=== PATIENT | female | born 1950 | race Caucasian/White ===

== ENCOUNTER 2022-08-13 12:49 | Emergency (ER) | payer MEDICARE, SELFPAY ==
--- NOTE | ~2022-08-13 | XR_ITS ---
EXAMINATION: XR CHEST CLINICAL INFORMATION: Cough and shortness of breath COMPARISON: None available. TECHNIQUE: Frontal view of the chest was obtained. FINDINGS: The lungs are well expanded. Patchy airspace opacities are seen in both lungs. No pleural effusion or pneumothorax. The cardiomediastinal silhouette is normal in size. XR/XR chest 1V IMPRESSION: Patchy bilateral airspace opacities are nonspecific. This could be infectious or inflammatory.
[2022-08-13 12:59] VITALS: BP 105/63; PULSE 98; RESP 19; TEMP 37.9; O2SAT 94; BMI 30.5
--- NOTE | 2022-08-13 12:59 | ED.URI ---
HPI - URI/Sore Throat General Chief Complaint: Upper Respiratory Symptoms <RADHA Grace Last Filed: 08/13/22 13:04> Stated Complaint: Body aches, Fever, Asthma <RADHA Grace Last Filed: 08/13/22 13:04> Time Seen by Provider: 08/13/22 13:43 <RADHA Grace Last Filed: 08/13/22 13:04> Source: patient <RADHA Tyson Last Filed: 08/13/22 15:48> Mode of arrival: ambulatory <RADHA Tyson Last Filed: 08/13/22 15:48> Limitations: no limitations <RADHA Tyson Last Filed: 08/13/22 15:48> History of Present Illness HPI Narrative: 72-year-old female with a history of asthma presents to the ER for evaluation of feeling unwell for the last 4 days. She reports intermittent fevers, body aches, headache, cough, nasal congestion and shortness of breath. She is bringing up white phlegm when she coughs. She has been using her albuterol inhaler with some improvement. She has been taking Tylenol for fevers. She denies any chest pain or difficulty breathing. [place] did [place] No known sick contacts. <RADHA Tyson Last Filed: 08/13/22 15:48> MD elicited complaint: fever, cough and nasal congestion <RADHA Tyson Last Filed: 08/13/22 15:48> Pertinent past history: asthma <RADHA Tyson Last Filed: 08/13/22 15:48> Onset (ago): day(s) (4) <RADHA Tyson Last Filed: 08/13/22 15:48> Consistency: progressively worsening <RADHA Tyson Last Filed: 08/13/22 15:48> Severity: moderate <RADHA Tyson Last Filed: 08/13/22 15:48> Description of mucous: clear and other (white) <RADHA Tyson Last Filed: 03/16/23 15:48> Able to tolerate fluids by mouth: No <RADHA Tyson Last Filed: 08/13/22 15:48> Relieving factors: nothing <RADHA Tyson Last Filed: 08/13/22 15:48> Context: recent travel <RADHA Tyson Last Filed: 08/13/22 15:48> Associated symptoms: fever, chills and nasal congestion <RADHA Tyson Last Filed: 08/13/22 15:48> Treatments prior to arrival: acetaminophen <RADHA Tyson Last Filed: 08/13/22 15:48> Related Data Home Medications: Previous Rx's Medication Instructions Recorded azithromycin 250 mg tablet See Rx Instructions PO .COMPLEX #6 08/13/22 (Zithromax Z-Nicholas) tabs benzonatate 100 mg capsule 100 mg PO TID PRN cough #30 caps 08/13/22 cefpodoxime 200 mg tablet 200 mg PO Q12H #10 tabs 08/13/22 prednisone 20 mg tablet 40 mg PO DAILY #10 tabs 08/13/22 <RADHA Grace Last Filed: 08/13/22 13:04> Allergies/Adverse Reactions: Allergies Allergy/AdvReac Type Severity Reaction Status Date / Time Penicillins [PCN] Allergy Hives Verified 08/13/22 13:03 <RADHA Grace Last Filed: 08/13/22 13:04> Review of Systems Review of Systems: Yes all other systems are reviewed and are negative <RADHA Tyson Last Filed: 08/13/22 15:48> [facility] Social History Social History: Social History Advance Directives: Yes Advance Directives Information Provided: No Advance Directives on File: No <RADHA Grace Last Filed: 08/13/22 13:04> Physical Exam Vital Signs: Vital Signs: Last Vital Signs Temp 98.8 F 08/13/22 14:59 Pulse 76 08/13/22 15:31 Resp 18 08/13/22 13:29 BP 105/63 08/13/22 12:59 Pulse Ox 96 08/13/22 15:31 O2 Del Method 08/13/22 15:31 BMI result Body Mass Index 30.5 <RADHA Grace - Last Filed: 08/13/22 13:04> Vital Signs: Last Vital Signs Temp 98.8 F 08/13/22 14:59 Pulse 76 08/13/22 15:31 Resp 18 08/13/22 13:29 BP 105/63 08/13/22 12:59 Pulse Ox 96 08/13/22 15:31 O2 Del Method 08/13/22 15:31 BMI result Body Mass Index 30.5 <RADHA Tyson - Last Filed: 08/13/22 15:48> Appearance: Alert. Oriented X3. No acute distress. Eyes: Pupils equal, round and reactive to light. ENT: Pharynx normal. Neck: Normal inspection. Neck supple. CVS: Normal heart rate and rhythm. Pulses normal. Respiratory: No respiratory distress. Breath sounds coarse at the RAJESH and right base. Speaking in complete sentences Abdomen: Soft and nontender. +BS x4 Skin: Skin warm and dry. Normal skin color. Normal skin turgor. No rashes. Extremities: No lower extremity edema. No calf swelling or tenderness. Neuro: Oriented X 3. No motor deficit. No sensory deficit. <RADHA Tyson - Last Filed: 08/13/22 15:48> Course Course Course Narrative: RME--72yo F w/PMHx Asthma presenting to the ED c/o fever Tmax 101.9 (took Tylenol at 12 noon), body aches, cough, [place], SOB & chest discomfort when coughing x4 days. Recently traveled on cruise to [facility] returned on 08/02/22. 100.2 temp in triage, Lungs CTA SARS/FLU/RSV, CXR, albuterol neb & Motrin ordered <RADHA Grace - Last Filed: 08/13/22 13:04> Medications Administered Discontinued Medications Generic Name Dose Route Start Last Admin Trade Name Freq PRN Reason Stop Dose Admin Albuterol Sulfate 2.5 mg 08/13/22 13:03 08/13/22 13:29 Albuterol Sulfate (0.083%) 2.5 Mg/3 Ml Vial.Neb INHALE 08/13/22 13:04 2.5 mg ONCE ONE Administration Ibuprofen 400 mg 08/13/22 13:03 08/13/22 13:47 Ibuprofen 400 Mg Tablet PO 08/13/22 13:04 400 mg ONCE ONE Administration <RADHA Grace - Last Filed: 08/13/22 13:04> Medications Administered Discontinued Medications Generic Name Dose Route Start Last Admin Trade Name Isaiah PRN Reason Stop Dose Admin Albuterol Sulfate 2.5 mg 08/13/22 13:03 08/13/22 13:29 Albuterol Sulfate (0.083%) 2.5 Mg/3 Ml Vial.Neb INHALE 08/13/22 13:04 2.5 mg ONCE ONE Administration Ibuprofen 400 mg 08/13/22 13:03 08/13/22 13:47 Ibuprofen 400 Mg Tablet PO 08/13/22 13:04 400 mg ONCE ONE Administration <RADHA Tyson - Last Filed: 08/13/22 15:48> Medical Decision Making Medical Decision Making [facility] Narrative: 72 yo female with history of asthma presenting with fever, cough, headache, body aches. Vital signs stable on arrival. She was brought to treatment room and given a albuterol breathing treatment. She reports improvement in her symptoms. She is nontoxic appearing. Chest x-ray showed some bilateral patchy opacities. Given her fevers, sputum production, will plan to treat for pneumonia, cover with azithromycin and Vantin. She is not hypoxic or in any respiratory distress. At this point she is stable for discharge home with oral antibiotics, short course of prednisone and antitussives. She was encouraged to follow up with her primary care doctor. She was given strict return precautions and is stable for discharge home. <RADHA Tyson - Last Filed: 08/13/22 15:48> Differential Diagnosis Differential Diagnoses: The differential diagnosis associated with the presentation includes <RADHA Tyson - Last Filed: 08/13/22 15:48> Acute asthma exacerbation, bronchitis, pneumonia, viral syndrome, COVID, flu, pneumonitis, viral URI <RADHA Tyson Last Filed: 08/13/22 15:48> Lab Data [facility] Lab Attestation statement: I reviewed the patient's lab results. <RADHA Tyson Last Filed: 08/13/22 15:48> Viral studies are negative <RADHA Tyson Last Filed: 08/13/22 15:48> Labs: Lab Results 08/13/22 Range/Units 13:32 Influenza Type A (PCR) NEGATIVE (Negative) Influenza Type B (PCR) NEGATIVE (Negative) RSV RNA Qual (PCR) NEGATIVE (Negative) SARS-CoV-2 RNA (RT-PCR) NEGATIVE (Negative) <RADHA Grace Last Filed: 08/13/22 13:04> Lab Results 08/13/22 Range/Units 13:32 Influenza Type A (PCR) NEGATIVE (Negative) Influenza Type B (PCR) NEGATIVE (Negative) RSV RNA Qual (PCR) NEGATIVE (Negative) SARS-CoV-2 RNA (RT-PCR) NEGATIVE (Negative) <RADHA Tyson Last Filed: 08/13/22 15:48> Independent Interpretation I performed an independent interpretation of an: Plain X-Ray <RADHA Tyson Last Filed: 08/13/22 15:48> Interpretation: CXR reviewed - patchy opacities in both lungs, no focal infiltrate or effusion, agree w/ radiologist read <RADHA yTson Last Filed: 08/13/22 15:48> Radiology Impression Discussion of test interpretation with radiology: I have reviewed the radiologist's reading. <RADHA Tyson Last Filed: 08/13/22 15:48> Radiologist Impression: EXAMINATION: XR CHEST CLINICAL INFORMATION: Cough and shortness of breath COMPARISON: None available. TECHNIQUE: Frontal view of the chest was obtained. FINDINGS: The lungs are well expanded. Patchy airspace opacities are seen in both lungs. No pleural effusion or pneumothorax. The cardiomediastinal silhouette is normal in size. XR/XR chest 1V IMPRESSION: Patchy bilateral airspace opacities are nonspecific. This could be infectious or inflammatory. ? <RADHA Tyson Last Filed: 08/13/22 15:48> Prescription Management I considered prescription management with: Antibiotic <RADHA Tyson Last Filed: 08/13/22 15:48> Chronic Conditions Patient?s care impacted by: Other (Asthma) <RADHA Tyson Last Filed: 08/13/22 15:48> Critical Care Time Critical Care Time Critical Care Time: No <RADHA Tyson Last Filed: 08/13/22 15:48> Discharge Plan Discharge Clinical Impression: Pneumonia <RADHA Grace Last Filed: 08/13/22 13:04> Patient Disposition: Home, Self-Care <RADHA Grace Last Filed: 08/13/22 13:04> Instructions: Pneumonia (ED) <RADHA Grace Last Filed: 08/13/22 13:04> Additional Instructions: You tested negative for influenza, COVID, flu. Your chest x-ray showed patchy bilateral airspace opacities that were nonspecific, could be infectious or inflammatory. Take the prescribed antibiotics for this. Take the prescribed steroids help with any inflammation in your lungs. Use your inhaler every 3-4 hours as needed for shortness of breath and wheezing. Follow-up with your doctor in the next week or so. If you develop new or worsening symptoms call 911 or come back to the ER for further evaluation. <RADHA Grace Last Filed: 08/13/22 13:04> Prescriptions: New azithromycin [Zithromax Z-Nicholas] 250 mg tablet See Rx Instructions .ROUTE .COMPLEX Qty: 6 0RF Rx Instructions: take 500 mg today (day 1), then 250 mg for 4 days (days 2-5) prednisone 20 mg tablet 40 mg PO DAILY Qty: 10 0RF benzonatate 100 mg capsule 100 mg PO TID PRN (Reason: cough) Qty: 30 0RF cefpodoxime 200 mg tablet 200 mg PO Q12H Qty: 10 0RF Rx Instructions: must administer with a meal/food <RADHA Grace Last Filed: 08/13/22 13:04> Interventions: ED Discharge Assessment Last Done: 08/13/22 15:37 <RADHA Grace Last Filed: 08/13/22 13:04> Discharge Date/Time: 08/13/22 15:37 <RADHA Grace Last Filed: 08/13/22 13:04>
[2022-08-13 13:29] VITALS: PULSE 98; RESP 18; O2SAT 94
[2022-08-13] MEDS: Albuterol Sulfate (0.083%) 2.5 MG/3 ML VIAL.NEB INHALE (13:29)
--- NOTE | 2022-08-13 13:36 | PC.NURSE ---
Patient taking breathing treatment LS clear no distress noted covid swab obtained will CTM
[2022-08-13] MEDS: Ibuprofen 400 MG TABLET PO (13:47)
[2022-08-13 14:45] LABS: Influenza A PCR NEGATIVE (Negative); Influenza B PCR NEGATIVE (Negative); Resp Syncy Virus RNA Qual PCR NEGATIVE (Negative); SARS COV2 PCR INHOUSE NEGATIVE (Negative)
[2022-08-13 14:59] VITALS: TEMP 37.1
[2022-08-13 15:31] VITALS: PULSE 76; O2SAT 96
--- NOTE | 2022-08-13 15:36 | PC.NURSE ---
pt contact (jelena) called [phone] no answer x2 left message pt is ready for dc
== END 2022-08-13 15:37 | disposition home or self-care (01) ==
PROVIDERS: Physician Assistant; Emergency Provider Emergency Medicine; PCP Internal Medicine
DX: J18.9 Pneumonia, unspecified organism (principal); R50.9 Fever, unspecified; Z20.822 Contact with and (suspected) exposure to COVID-19; Z20.828 Contact with and (suspected) exposure to other viral communicable diseases
CPT/HCPCS: 0241U; 71045; 94640; 99284